=== PATIENT | female | born 1970 | race Caucasian/White ===

== ENCOUNTER → 2021-04-07 | Outpatient (CLI) | payer BC, MEDICARE, OTHER ==
[~2021-04-07] MED LIST: IBUPROFEN800 MG PO
== END ==
LOC: KOH-I 10:44
DX: M79.671 Pain in right foot (principal); M79.672 Pain in left foot; M25.572 Pain in left ankle and joints of left foot; M25.571 Pain in right ankle and joints of right foot; M19.071 Primary osteoarthritis, right ankle and foot; M77.32 Calcaneal spur, left foot; M77.31 Calcaneal spur, right foot
CPT/HCPCS: 73610; 73630

== ENCOUNTER → 2021-04-20 | Outpatient (CLI) | payer BC, MEDICARE, OTHER ==
[~2021-04-20] MED LIST changes: +ALBUTEROL1.25 MG/3 INH; +AMARYL4 MG PO; +BASAGLAR K100 UNIT/1 INJ; +BUSPIRONE HCL15 MG PO; +IBU800 MG PO; +INCRUSE ELLI62.5 MCG INH; +LISINOPRIL40 MG PO; +MAXZIDE 37.5 M1 EACH PO; +NEURONTIN600 MG PO; +NORVASC5 MG PO; +OZEMPIC INJ; +RISPERDAL1 MG PO; +TERBINAFINE HC250 MG PO; +TRULICITY1.5 MG/0.5 INJ; +VENLAFAXINE HC225 MG PO; +VENTOLIN HFA 66.7 GM INH; +VITAMIN D PO; +VITAMIN D325 MCG PO; +ZOCOR20 MG PO
== END ==
LOC: CT 08:30 → KOH-I 11:00
DX: Z01.818 Encounter for other preprocedural examination (principal); M19.071 Primary osteoarthritis, right ankle and foot; M79.606 Pain in leg, unspecified; Z96.698 Presence of other orthopedic joint implants
CPT/HCPCS: 73700; 93926

== ENCOUNTER → 2021-06-20 | Outpatient (CLI) | payer BC, MEDICARE, OTHER ==
[2021-06-20 11:11] LABS: HEMOGLOBIN 18.1 gm/dl (12.3-15.3); RED BLOOD COUNT 6.26 M/UL (4.00-5.10); WHITE BLOOD COUNT 9.3 K/UL (4.5-11.0)
== END ==
LOC: OPSV2 10:00
PROVIDERS: Podiatrist Foot & Ankle Surgery
DX: Z01.818 Encounter for other preprocedural examination (principal); M19.071 Primary osteoarthritis, right ankle and foot; R94.31 Abnormal electrocardiogram [ECG] [EKG]; R00.1 Bradycardia, unspecified
CPT/HCPCS: 36415; 80048; 83036; 85027; 93005

== ENCOUNTER 2022-05-19 18:35 | Inpatient (IN) | payer BC, MEDICARE, OTHER ==
[~2022-05-19] VITALS: Ht 157.5 cm; Wt 89.9 kg
[~2022-05-19 18:35] MED LIST changes: -BASAGLAR K100 UNIT/1 INJ; -NEURONTIN600 MG PO; +NEURONTIN800 MG PO; +TRESIBA FLEXTOUCH SQ; -TRULICITY1.5 MG/0.5 INJ; +TRULICITY3 MG/0.5 M SQ
[2022-05-19 20:13] LABS: HEMOGLOBIN 17.7 gm/dl (12.3-15.3); RED BLOOD COUNT 6.15 M/UL (4.00-5.10); WHITE BLOOD COUNT 11.3 K/UL (4.5-11.0)
[2022-05-20 02:50] LABS: HEMOGLOBIN 15.2 gm/dl (12.3-15.3); RED BLOOD COUNT 5.46 M/UL (4.00-5.10); WHITE BLOOD COUNT 7.9 K/UL (4.5-11.0)
[2022-05-20] MEDS ORDERED: VITAMIN D21250 MCG PO (09:42)
[2022-05-20] MEDS ORDERED: BENICAR40 MG PO (09:46)
[2022-05-20] MEDS ORDERED: HYDROCHLOROTHIA25 MG PO (09:46)
[2022-05-20] MEDS ORDERED: ONDANSETRON ODT8 MG PO (09:46)
[2022-05-20] MEDS ORDERED: METOPROLOL SUCC25 MG PO (09:46)
[2022-05-20] MEDS ORDERED: ROBAXIN 750 MG750 MG PO (09:47)
[2022-05-21 03:52] LABS: HEMOGLOBIN 15.3 gm/dl (12.3-15.3); RED BLOOD COUNT 5.6 M/UL (4.00-5.10); WHITE BLOOD COUNT 8.4 K/UL (4.5-11.0)
== END 2022-05-21 10:42 | disposition home or self-care (01) | DRG 682 ==
LOC: ER1 18:35 → CDU 22:15 → PROG CARE 22:15
PROVIDERS: Internal Medicine Infectious Disease; Physician Assistant; ADMIT Internal Medicine
DX: N17.0 Acute kidney failure with tubular necrosis (principal); R57.1 Hypovolemic shock; A08.4 Viral intestinal infection, unspecified; Z20.822 Contact with and (suspected) exposure to COVID-19; E86.0 Dehydration; I10 Essential (primary) hypertension; F17.210 Nicotine dependence, cigarettes, uncomplicated; F41.9 Anxiety disorder, unspecified; E78.5 Hyperlipidemia, unspecified; E11.9 Type 2 diabetes mellitus without complications; Z96.698 Presence of other orthopedic joint implants; F32.A Depression, unspecified; E55.9 Vitamin D deficiency, unspecified; Z98.51 Tubal ligation status; Z98.890 Other specified postprocedural states; Z79.4 Long term (current) use of insulin; Z88.8 Allergy status to other drugs, medicaments and biological substances; Z86.73 Personal history of transient ischemic attack (TIA), and cerebral infarction without residual deficits
CPT/HCPCS: 0240U; 36415; 70450; 71045; 80048; 80053; 81001; 82550; 82553; 82962; 83605; 83735; 84484; 85025; 87040; 87086; 93005; 96361; 96374; 96375; 99285; J0696; J2405; J3475

== ENCOUNTER 2022-06-08 23:31 | Emergency (ER) | payer BC, MEDICARE, OTHER ==
[~2022-06-08 23:31] MED LIST changes: +BENICAR40 MG PO; +HYDROCHLOROTHIA25 MG PO; +METOPROLOL SUCC25 MG PO; +ONDANSETRON ODT8 MG PO; +ROBAXIN 750 MG750 MG PO; +VITAMIN D21250 MCG PO
[2022-06-09 00:01] LABS: RED BLOOD COUNT 5.03 M/UL (4.00-5.10); WHITE BLOOD COUNT 5.6 K/UL (4.5-11.0)
[2022-06-09 00:20] LABS: BUN/CREATININE RATIO 11 (0-10)
[2022-06-09] MEDS ORDERED: PAXLOVID 150-11 EACH PO (01:58)
== END 2022-06-09 02:15 | disposition home or self-care (01) ==
LOC: ER1 23:31
PROVIDERS: Family Medicine
DX: U07.1 COVID-19 (principal); E87.6 Hypokalemia; E11.9 Type 2 diabetes mellitus without complications; F17.200 Nicotine dependence, unspecified, uncomplicated; I10 Essential (primary) hypertension; Z79.4 Long term (current) use of insulin; Z88.6 Allergy status to analgesic agent
CPT/HCPCS: 0240U; 71045; 80053; 83605; 85025; 87040; 93005; 99284